=== PATIENT | male | born 1995 | race Caucasian/White ===

== ENCOUNTER 2016-10-18 23:36 | Emergency (ER) | payer SELFPAY | END 2016-10-19 02:38 | disposition left against medical advice (07) | LOC: M ED 23:36 | DX: R11.10 Vomiting, unspecified (principal); Z87.891 Personal history of nicotine dependence; Z53.21 Procedure and treatment not carried out due to patient leaving prior to being seen by health care provider ==

== ENCOUNTER 2017-03-23 18:33 | Emergency (ER) | payer OTHER, SELFPAY ==
[~2017-03-23] VITALS: Ht 177.8 cm; Wt 63.9 kg
--- NOTE | 2017-03-23 19:40 | REPUSA ---
Clinical history: pain. Comparison: none. Findings: Real-time ultrasound imaging of the left in the region was performed. No evidence of a ingu inal hernia is noted. No herniating bowel is seen. No abnormal masses or fluid collections are noted. There is no evidence of ascites. Impression: Negative study.
[2017-03-23] MEDS ORDERED: IBUP-1022 PO (20:37)
[2017-03-23] MEDS ORDERED: IBUPROFEN 600 MG TAB PO ONE (20:45)
[2017-03-23 20:58] VITALS: BP 133/71
== END 2017-03-23 20:58 | disposition home or self-care (01) ==
LOC: M ED 18:33
DX: S39.011A Strain of muscle, fascia and tendon of abdomen, initial encounter (principal); X50.0XXA Overexertion from strenuous movement or load, initial encounter; Y92.89 Other specified places as the place of occurrence of the external cause; Y93.89 Activity, other specified; Y99.8 Other external cause status; Z87.891 Personal history of nicotine dependence

== ENCOUNTER 2017-06-16 16:40 | Emergency (ER) | payer MEDICAID, OTHER, SELFPAY ==
[~2017-06-16] VITALS: Ht 177.8 cm; Wt 61.4 kg
[~2017-06-16 16:40] MED LIST: IBUP-1022 PO
[2017-06-16] MEDS ORDERED: PENI500T PO (17:59)
[2017-06-16 18:23] VITALS: BP 139/76
== END 2017-06-16 18:24 | disposition home or self-care (01) ==
LOC: M ED 16:40
DX: J02.0 Streptococcal pharyngitis (principal); J35.1 Hypertrophy of tonsils; Z87.891 Personal history of nicotine dependence

== ENCOUNTER → 2017-10-04 | Outpatient (CLI) | payer OTHER ==
[2017-10-04 12:18] LABS: HEMATOCRIT 52.5 % (42.0-52.0); HEMOGLOBIN 17.4 g/dl (14.0-18.0); MEAN CORPUSCULAR HEMOGLOBIN 28.9 pg (27.0-33.0); MEAN CORPUSCULAR HGB CONC 33.1 g/dl (32.0-36.5); MEAN CORPUSCULAR VOLUME 87.1 fl (80.0-96.0); PLATELET COUNT, AUTOMATED 225 10^3/uL (150-450); RED BLOOD COUNT 6.03 10^6/uL (4.30-6.10); RED CELL DISTRIBUTION WIDTH 12.3 % (11.5-14.5); WHITE BLOOD COUNT 6.3 10^3/uL (4.0-10.0)
[2017-10-04 12:23] LABS: SUSPECT SAMPLE POS FLAG
[2017-10-04 12:30] LABS: ANION GAP 4 MEQ/L (8-16); BLOOD UREA NITROGEN 11 MG/DL (7-18); CALCIUM LEVEL 9.4 MG/DL (8.5-10.1); CARBON DIOXIDE LEVEL 31 MEQ/L (21-32); CHLORIDE LEVEL 105 MEQ/L (98-107); CREATININE FOR GFR 0.78 MG/DL (0.70-1.30); GLUCOSE, FASTING 81 MG/DL (70-100); POTASSIUM SERUM 4.1 MEQ/L (3.5-5.1); SODIUM LEVEL 140 MEQ/L (136-145)
== END ==
LOC: M WUC 09:26
DX: R10.84 Generalized abdominal pain (principal); K59.00 Constipation, unspecified; H10.13 Acute atopic conjunctivitis, bilateral
CPT/HCPCS: 80048

== ENCOUNTER 2019-12-06 22:30 | Emergency (ER) | payer OTHER ==
[~2019-12-06] VITALS: Ht 27.9 cm; Wt 79.0 kg
[~2019-12-06 22:30] MED LIST changes: +PENI500T PO
[2019-12-07 00:47] LABS: ACETAMINOPHEN LEVEL < 2.0 UG/ML (10.0-30.0); ALBUMIN 3.8 GM/DL (3.2-5.2); ALT/SGPT 17 U/L (12-78); AMPHETAMINES LEVEL URINE NEGATIVE (NEGATIVE); BARBITURATES URINE NEGATIVE (NEGATIVE); BENZODIAZEPINES URINE NEGATIVE (NEGATIVE); BILIRUBIN,DIRECT 0.2 MG/DL (0.0-0.2); BILIRUBIN,TOTAL 0.6 MG/DL (0.2-1.0); BLOOD UREA NITROGEN 9 MG/DL (7-18); CALCIUM LEVEL 8.8 MG/DL (8.5-10.1); CANNABINOIDS URINE POSITIVE (NEGATIVE); CARBON DIOXIDE LEVEL 30 MEQ/L (21-32); CHLORIDE LEVEL 108 MEQ/L (98-107); COCAINE METABOLITE URINE NEGATIVE (NEGATIVE); CREATININE FOR GFR 0.75 MG/DL (0.70-1.30); ETHYL ALCOHOL (ETHANOL) < 0.003 % (0.000-0.010); GLOMERULAR FILTRATION RATE > 60.0 (>60); GLUCOSE, FASTING 104 MG/DL (70-100); METHADONE URINE NEGATIVE (NEGATIVE); OPIATES URINE NEGATIVE (NEGATIVE); PHENCYCLIDINE URINE NEGATIVE (NEGATIVE); POTASSIUM SERUM 4.4 MEQ/L (3.5-5.1); SALICYLATE LEVEL < 1.7 MG/DL (5.0-30.0); SODIUM LEVEL 140 MEQ/L (136-145); TOTAL PROTEIN 6.8 GM/DL (6.4-8.2)
[2019-12-07 00:51] LABS: HEMATOCRIT 44.9 % (42.0-52.0); HEMOGLOBIN 14.9 g/dl (13.5-17.5); MEAN CORPUSCULAR HGB CONC 33.2 g/dl (32.0-36.5); MEAN CORPUSCULAR VOLUME 90.3 fl (80.0-96.0); PLATELET COUNT, AUTOMATED 284 10^3/uL (150-450); RED BLOOD COUNT 4.97 10^6/uL (4.30-6.10); WHITE BLOOD COUNT 11.4 10^3/uL (4.0-10.0)
[2019-12-07 01:50] VITALS: BP 123/78
== END 2019-12-07 02:01 | disposition home or self-care (01) ==
LOC: M ED 22:30
DX: R45.89 Other symptoms and signs involving emotional state (principal); S50.811A Abrasion of right forearm, initial encounter; X83.8XXA Intentional self-harm by other specified means, initial encounter; Y92.89 Other specified places as the place of occurrence of the external cause; F33.9 Major depressive disorder, recurrent, unspecified
CPT/HCPCS: 36415; 80048; 80076; 80307; 84443; 85027; 99284; G0480

== ENCOUNTER → 2022-01-16 | Outpatient (REF) | payer OTHER | LOC: M LAB REF 22:57 | PROVIDERS: ATTEND Physician Assistant Medical | DX: R50.9 Fever, unspecified (principal); R52 Pain, unspecified ==

== ENCOUNTER 2022-04-17 07:29 | Emergency (ER) | payer OTHER, MEDICAID ==
[~2022-04-17] VITALS: Ht 180.3 cm; Wt 72.3 kg
[2022-04-17] MEDS ORDERED: IBUP-1824 PO (10:16)
[2022-04-17 10:23] VITALS: BP 141/86
== END 2022-04-17 10:35 | disposition home or self-care (01) ==
LOC: M ED 07:29
DX: S39.011A Strain of muscle, fascia and tendon of abdomen, initial encounter (principal); S29.012A Strain of muscle and tendon of back wall of thorax, initial encounter; T14.8XXA Other injury of unspecified body region, initial encounter; Y04.8XXA Assault by other bodily force, initial encounter; Y07.59 Other non-family member, perpetrator of maltreatment and neglect; Y92.89 Other specified places as the place of occurrence of the external cause